=== PATIENT | female | born 1990 | race Caucasian/White ===

== ENCOUNTER 2016-12-23 12:04 | Emergency (ER) | payer MEDICAID ==
[~2016-12-23] VITALS: Ht 165.1 cm; Wt 120.0 kg
[2016-12-23 12:06] VITALS: BP 172/99; PULSE 52; RESP 22; TEMP 98.7; O2SAT 96
[2016-12-23] MEDS ORDERED: CYMB60CA PO (15:14)
[2016-12-23] MEDS ORDERED: CLON1 PO (15:14)
[2016-12-23] MEDS ORDERED: LURA1TAB2 PO (15:14)
[2016-12-23 15:37] VITALS: BP 106/70; PULSE 64; RESP 17; TEMP 98.1; O2SAT 98
--- NOTE | 2016-12-23 15:44 | PD ---
HPI Chief Complaint: Abdominal Pain Time Seen by Provider: 15:00 Travel History International Travel<30 days: No Contact w/Intl Traveler<30days: No Traveled to known affect area: No History of Present Illness HPI The patient was seen and examined in the presence of the nurse. This patient complains of pelvic cramping. Sometimes when she has a menstrual period she gets pelvic cramping. This feels the same way to her. She is on her period. She denies . She is not sexually active. Severity is mild to moderate. PFSH Past Medical History Bipolar Disorder: Yes Anxiety: Yes Depression: Yes Diminished Hearing: No Neurologic: Yes (PITUITARY ) Psychiatric: Yes Immunizations Current: Yes Schizophrenia: Yes Tetanus Vaccination: Unknown Influenza Vaccination: No ?: Not LMP: 12/22/16 : 0 Past Surgical History Surgical History: No Previous Surgery Social History Alcohol Use: No (occ) Tobacco Use: No (quit ) Substance Use: Yes (MARIJUANA LAST USE 2 WEEKS) Allergies-Medications (Allergen,Severity, Reaction): Coded Allergies: amphetamine (Verified Allergy, Unknown, BIZARRE BEHAVIOR, 12/23/16) dextroamphetamine (Verified Allergy, Unknown, BIZARRE BEHAVIOR, 12/23/16) methylphenidate (Verified Allergy, Unknown, DROWSY, 12/23/16) oxcarbazepine (Verified Allergy, Unknown, HALLUCINATION , 12/23/16) Reported Meds & Prescriptions Reported Meds & Active Scripts Active Reported Klonopin (Clonazepam) 1 Mg Tab 1 Mg PO TID Cymbalta DR (Duloxetine HCl) 60 Mg Capdr 60 Mg PO DAILY Latuda (Lurasidone) 60 Mg Tab 60 Mg PO DAILY Review of Systems General / Constitutional: No: Fever HENT: No: Headaches Cardiovascular: No: Chest Pain or Discomfort Physical Exam Narrative GASTROINTESTINAL: Abdomen soft, morbidly obese, non-tender, nondistended. Positive bowel sounds. No hepato-splenomegaly, or palpable masses. No guarding Psych: Normal mood and affect. Normal insight and judgment. SKIN: Focused skin assessment reveals no rash or ulcers. Skin is warm and dry. Palpation shows no induration or nodules. Data Data Last Documented VS Vital Signs Date Time Temp Pulse Resp B/P (MAP) Pulse Ox O2 Delivery O2 Flow Rate FiO2 12/23/16 12:06 98.7 52 22 172/99 (123) 96 Orders Orders Ed Urine Pregnancytest Poc (12/23/16 15:17) MDM Medical Decision Making Medical Screen Exam Complete: Yes Emergency Medical Condition: Yes Medical Record Reviewed: Yes Differential Diagnosis Ectopic , ovulation pain, nonspecific pelvic cramping, ovarian cystic disease Narrative Course I have reviewed the patient's electronic medical record. Urine is negative I'm not suspicious of infection. Tramadol written Diagnosis Primary Impression: Pelvic pain in female Additional Instructions: The patient was warned about potential sedation for the medications they will receive on prescription. The patient was advised to follow up with their physician and return if they worsen. Med/Other Pt SpecificInfo: Prescription(s) given Disposition: 01 DISCHARGE HOME Condition: Stable Jamar Serna MD Dec 23, 2016 15:44
[2016-12-23] MEDS ORDERED: TYLETAB34 PO (15:52)
== END 2016-12-23 16:33 | disposition home or self-care (01) ==
LOC: NEPD 12:04
DX: R10.2 Pelvic and perineal pain (principal); F31.9 Bipolar disorder, unspecified; F12.90 Cannabis use, unspecified, uncomplicated
CPT/HCPCS: 84703; 99283